=== PATIENT | female | born 1990 | race American Indian/Alaskan Native ===

== ENCOUNTER 2016-07-04 06:08 | Emergency (ER) | payer OTHER ==
[2016-07-04 06:47] LABS: RBC URINE < 1 /hpf (0-3); URINE BILIRUBIN NEGATIVE (NEGATIVE); URINE BLOOD NEGATIVE (NEGATIVE); URINE COLOR Straw (YELLOW); URINE GLUCOSE (UA) NORMAL (Normal); URINE KETONE NEGATIVE (NEGATIVE); URINE LEUKOCYTE ESTERASE NEG Leu/uL (Negative); URINE PROTEIN NEGATIVE (NEGATIVE); URINE UROBILINOGEN NORMAL mg/dL (0.2-1.0)
[2016-07-04 07:01] VITALS: O2SAT 100
--- NOTE | 2016-07-04 07:34 | C.PDOC ---
History Of Present Illness 26 y/o female pmhx asthma, mitral valve prolapse presents to the ED with multiple complaints. Pt states she has been belching and has pain in the rib cage when belching over the past year, worse today. Pt also reports intermittent palpitations (none currently), tension to left side of head and numbness to bilateral hands. Pt denies fever, chills, chest pain, SOB, nausea, vomiting, neck pain or any other complaints. Pt has been told she has panic attacks in the past. Time Seen by Provider: 07/04/16 07:14 Chief Complaint (Nursing): Palpitations History Per: Patient History/Exam Limitations: no limitations Onset/Duration Of Symptoms: Days Current Symptoms Are (Timing): Worse Severity: Moderate Recent travel outside of the [place]: No Past Medical History Reviewed: Historical Data, Nursing Documentation, Vital Signs Vital Signs: Last Vital Signs Temp 97.3 F L 07/04/16 09:56 Pulse 78 07/04/16 09:56 Resp 14 07/04/16 09:56 BP 108/72 07/04/16 09:56 Pulse Ox 100 07/04/16 09:56 - Medical History PMH: Anxiety, Asthma, Mitral Valve Prolapse Family History: States: Unknown Family Hx - Social History Hx Alcohol Use: No Hx Substance Use: No - Immunization History Hx Influenza Vaccination: No Hx Pneumococcal Vaccination: No Review Of Systems Except As Marked, All Systems Reviewed And Found Negative. Constitutional: Negative for: Fever Cardiovascular: Positive for: Palpitations (resolved). Negative for: Chest Pain Respiratory: Negative for: Shortness of Breath Gastrointestinal: Negative for: Nausea, Vomiting Musculoskeletal: Positive for: Other (pain to rib cage when belching). Negative for: Neck Pain Neurological: Positive for: Numbness (bilateral hands), Other (tension to left sided head). Negative for: Weakness Physical Exam - Physical Exam Appears: Non-toxic, No Acute Distress, Other (anxious) Skin: Warm, Dry, No Rash Head: Atraumatic, Normacephalic Neck: Normal ROM, Supple Chest: Symmetrical Cardiovascular: Rhythm Regular, No Murmur Respiratory: Normal Breath Sounds, No Rales, No Rhonchi, No Wheezing Gastrointestinal/Abdominal: Normal Exam, Soft, No Tenderness Extremity: Normal ROM Extremity: Bilateral: Atraumatic Neurological/Psych: Oriented x3, Normal Speech, Normal Motor, Normal Sensation ED Course And Treatment - Laboratory Results Result Diagrams: 07/04/16 08:12 07/04/16 08:12 O2 Sat by Pulse Oximetry: 100 (room air) Pulse Ox Interpretation: Normal Progress Note: Plan: EKG, UA Medical Decision Making Medical Decision Making: Patient very anxious. Hx of MVP. EKG wnl, labs wnl. Patient given Ativan 1 mg PO. Now sleepy, but willing to go home. States she has no pain. Will wait until she is more awake. Disposition Counseled Patient/Family Regarding: Studies Performed, Diagnosis - Disposition Disposition: HOME/ ROUTINE Disposition Time: 10:33 Condition: STABLE Additional Instructions: Follow up with your doctor. Return to the ED with any further concerns. Instructions: Palpitations (ED) Forms: General Discharge Instructions, Work Excuse - POA Present On Arrival: None - Clinical Impression Clinical Impression: Palpitations - Scribe Statement The provider has reviewed the documentation as recorded by the Rachel Maravilla Provider Attestation: All medical record entries made by the Jose Libpedro were at my direction and personally dictated by me. I have reviewed the chart and agree that the record accurately reflects my personal performance of the history, physical exam, medical decision making, and the department course for this patient. I have also personally directed, reviewed, and agree with the discharge instructions and disposition.
[2016-07-04 08:31] LABS: BASO % 0.3 % (0.0-2.0); EOS % 0.4 % (0.0-4.0); HEMATOCRIT 34.3 % (34.0-47.0); LYMPH % 32.9 % (20.0-40.0); MEAN CELL VOLUME 90.7 fL (81.0-99.0); MEAN CORPUSCULAR HEMOGLOBIN 30.5 pg (27.0-31.0); MEAN CORPUSCULAR HGB CONC 33.7 g/dL (33.0-37.0); MEAN PLATELET VOLUME 8.4 fL (7.2-11.7); MONO # 0.3 K/uL (0.0-0.8); MONO % 9.8 % (0.0-10.0); RED CELL DISTRIBUTION WIDTH 12.2 % (11.5-14.5); WHITE BLOOD COUNT 3.1 K/uL (4.8-10.8)
[2016-07-04 08:39] LABS: CHLORIDE 105 mmol/L (98-107); SODIUM 142 mmol/L (132-148)
[2016-07-04 08:40] LABS: POTASSIUM 3.7 mmol/L (3.6-5.2)
[2016-07-04 08:42] LABS: ALB/GLOB RATIO 1.4 (1.0-2.1); ALKALINE PHOSPHATASE 59 U/L (38-126); AST/SGOT 19 U/L (14-36); BILIRUBIN,TOTAL 0.9 mg/dL (0.2-1.3); BLOOD UREA NITROGEN 7 mg/dL (7-17); CARBON DIOXIDE 21 mmol/L (22-30); GFR AFRICAN-AMERICAN > 60; GLUCOSE,RANDOM 101 mg/dL (65-105); TOTAL PROTEIN 7.7 g/dL (6.3-8.3)
[2016-07-04 08:43] LABS: ALCOHOL SERUM < 10 mg/dl (0-10); CALCIUM 9.5 mg/dl (8.6-10.4)
[2016-07-04 08:47] LABS: ALT/SGPT < 6 U/L (9-52)
[2016-07-04 09:57] VITALS: BP 108/72; PULSE 78; RESP 14; TEMP 97.3
--- NOTE | 2016-07-11 13:50 | CARD ---
APPROVED REPORT EKG Measurement Heart [id number] [place] [id number] <Conclusion> Normal sinus rhythm with sinus arrhythmia Nonspecific T wave abnormality Abnormal ECG
== END 2016-07-04 10:52 | disposition home or self-care (01) ==
LOC: C.ER 06:08
DX: R00.2 Palpitations (principal)

== ENCOUNTER 2016-12-14 11:50 | Observation (INO) | payer OTHER ==
[2016-12-14] MEDS ORDERED: Sodium Chloride 0.9% 1,000 ML IV ONE (12:07)
[2016-12-14] MEDS ORDERED: Lactated Ringer's 1,000 ML IV ONE ×2 (12:20)
[2016-12-14] MEDS: cefOXitin IV 1 gm in Dextrose 1 GM/50 ML BAG IVPB ONE ×2 (12:20→14:20)
[2016-12-14 12:32] LABS: BASO % 0.5 % (0.0-2.0); CHLORIDE 103 mmol/L (98-107); EOS % 0.8 % (0.0-4.0); HEMATOCRIT 32.6 % (34.0-47.0); LYMPH # 1.4 K/uL (1.0-4.3); LYMPH % 47.5 % (20.0-40.0); MEAN CORPUSCULAR HEMOGLOBIN 30.8 pg (27.0-31.0); MEAN CORPUSCULAR HGB CONC 32.6 g/dL (33.0-37.0); MEAN PLATELET VOLUME 7.6 fL (7.2-11.7); MONO # 0.3 K/uL (0.0-0.8); MONO % 9.3 % (0.0-10.0); NRBC % 0.1 % (0.0-2.0); POTASSIUM 3.9 mmol/L (3.6-5.2); RED CELL DISTRIBUTION WIDTH 13.5 % (11.5-14.5); SODIUM 138 mmol/L (132-148)
[2016-12-14 12:34] LABS: BILIRUBIN,TOTAL 0.7 mg/dL (0.2-1.3); CARBON DIOXIDE 26 mmol/L (22-30); GFR AFRICAN-AMERICAN > 60
[2016-12-14 12:35] LABS: ALB/GLOB RATIO 1.1 (1.0-2.1); ALKALINE PHOSPHATASE 47 U/L (38-126); ALT/SGPT 14 U/L (9-52); AST/SGOT 18 U/L (14-36); BLOOD UREA NITROGEN 9 mg/dL (7-17); CALCIUM 9.4 mg/dl (8.6-10.4); GLUCOSE,RANDOM 76 mg/dL (65-105); TOTAL PROTEIN 8.3 g/dL (6.3-8.3)
[2016-12-14 12:36] LABS: RBC URINE 6 /hpf (0-3); URINE BACTERIA RARE (<OCC); URINE BILIRUBIN NEGATIVE (NEGATIVE); URINE COLOR Yellow (YELLOW); URINE GLUCOSE (UA) NORMAL (Normal); URINE KETONE NEGATIVE (NEGATIVE); URINE PROTEIN NEGATIVE (NEGATIVE); WBC URINE 8 /hpf (0-5)
[2016-12-14 12:37] LABS: INR 1.1; URINE BLOOD 1+ (NEGATIVE); URINE LEUKOCYTE ESTERASE 1+ Leu/uL (Negative)
[2016-12-14 12:40] LABS: MEAN CELL VOLUME 94.4 fL (81.0-99.0)
--- NOTE | 2016-12-14 12:53 | C.PDOC ---
History Of Present Illness 26 year old female presents to the ED for worsening abdominal pain and vaginal bleeding in setting of recent elective medical . Patient reports starting methotrexate on November 29 for medical . She began having vaginal bleeding shortly after which resolved. Patient began having abdominal pain and vaginal bleeding returned. She presented to her OBGYN who ordered an ultrasound which showed retained products and discharged the patient home. Patient reports that pain and bleeding have worsened today prompting her to come to the ED. Chief Complaint (Nursing): Medical Clearance History Per: Patient History/Exam Limitations: no limitations Onset/Duration Of Symptoms: Days Current Symptoms Are (Timing): Worse Past Medical History Reviewed: Historical Data, Nursing Documentation, Vital Signs Vital Signs: Last Vital Signs Temp 98.1 F 12/14/16 14:50 Pulse 60 12/14/16 16:00 Resp 14 12/14/16 16:00 BP 126/64 12/14/16 16:00 Pulse Ox 100 12/14/16 16:00 - Medical History PMH: Anxiety, Asthma, Bronchitis, Mitral Valve Prolapse Family History: States: Unknown Family Hx - Social History Hx Alcohol Use: No Hx Substance Use: No - Immunization History Hx Influenza Vaccination: No Hx Pneumococcal Vaccination: No Review Of Systems Gastrointestinal: Positive for: Abdominal Pain Genitourinary: Positive for: Vaginal Bleeding Physical Exam - Physical Exam Appears: Non-toxic, No Acute Distress Skin: Normal Color, Warm, Dry Head: Atraumatic, Normacephalic Eye(s): bilateral: Normal Inspection, PERRL, EOMI Pelvic: Other (Pelvic Exam Deferred ) Neurological/Psych: Oriented x3, Normal Speech ED Course And Treatment - Laboratory Results Result Diagrams: 12/14/16 12:17 12/14/16 12:17 O2 Sat by Pulse Oximetry: 100 Medical Decision Making Medical Decision Making: Labs ordered. Spoke with Dr. Rubin [employer] investigations manager who accepted the patient to same day surgery for D&C. Disposition - Disposition Disposition: HOSPITALIZED Disposition Time: 12:52 Condition: STABLE - Clinical Impression Clinical Impression: Incomplete - Scribe Statement The provider has reviewed the documentation as recorded by the Scribe Tanner Steel
--- NOTE | 2016-12-14 13:07 | CP.PCM.HP ---
History of Present Illness - History of Present Illness History of Present Illness: 26 yr lmp ?? s/p medical termination on nov 29 came with vaginal bleeding since nov 29.pt had a sonogram retained products.c/o cramping pain. obhx 3 x nvd pmh den med pnv all nkda psh den soch den pelic exa old blood cervix dilated, ut 8weks anteverted,no mass Present on Admission - Present on Admission Any Indicators Present on Admission: No History of DVT/PE: No History of Uncontrolled Diabetes: No Urinary Catheter: No Decubitus Ulcer Present: No Review of Systems - Reproductive: Female Reproductive:Female: Abnormal Vaginal Bleeding Past Patient History - Infectious Disease Hx of Infectious Diseases: None - Past Social History Smoking Status: Former Smoker - CARDIAC Hx Mitral Valve Prolapse: Yes - PULMONARY Hx Asthma: Yes Hx Bronchitis: Yes - PSYCHIATRIC Hx Anxiety: Yes Hx Substance Use: No - SURGICAL HISTORY Hx Surgeries: No - ANESTHESIA Hx Anesthesia: No Meds Allergies/Adverse Reactions: Allergies Allergy/AdvReac Type Severity Reaction Status Date / Time chocolate AdvReac Severe RASH Uncoded 12/14/16 11:57 soda AdvReac Severe RASH Uncoded 12/14/16 11:57 Physical Exam - Exam External exam: NORMAL EXTERNAL EXAM Speculum exam: Vaginal Bleeding Bimanual exam: NORMAL BIMANUAL EXAM (cervix dilated) Results - Vital Signs Recent Vital Signs: Last Vital Signs Temp 98.2 F 12/14/16 11:54 Pulse 57 L 12/14/16 12:49 Resp 16 12/14/16 12:49 BP 103/63 12/14/16 12:49 Pulse Ox 100 12/14/16 12:53 - Labs Result Diagrams: 12/14/16 12:17 12/14/16 12:17 Labs: Laboratory Results - last 24 hr 12/14/16 12/14/16 12/14/16 12:17 12:17 12:17 WBC 3.0 L RBC 3.45 L Hgb 10.6 L Hct 32.6 L MCV 94.4 D MCH 30.8 MCHC 32.6 L RDW 13.5 Plt Count 359 MPV 7.6 Neut % (Auto) 41.9 L Lymph % (Auto) 47.5 H [place] % (Auto) 9.3 Eos % (Auto) 0.8 Baso % (Auto) 0.5 Neut # 1.2 L Lymph # 1.4 [place] # 0.3 Eos # 0.0 Baso # 0.0 PT 12.5 H INR 1.1 APTT 31 Sodium Potassium Chloride Carbon Dioxide Anion Gap BUN Creatinine Est GFR ( Amer) Est GFR (Non-Af Amer) Random Glucose Calcium Total Bilirubin AST ALT Alkaline Phosphatase Total Protein Albumin Globulin Albumin/Globulin Ratio Urine Color Yellow Urine Clarity Hazy Urine pH 5.0 Ur Specific [place] 1.021 Urine Protein Negative Urine Glucose (UA) Normal Urine Ketones Negative Urine Blood 1+ H Urine Nitrate Negative Urine Bilirubin Negative Urine Urobilinogen 4.0 H Ur Leukocyte Esterase 1+ H Urine WBC (Auto) 8 H Urine RBC (Auto) 6 H Ur Squamous Epith Cells 21 H Urine Bacteria Rare Blood Type 12/14/16 12/14/16 12:17 12:17 WBC RBC Hgb Hct MCV MCH MCHC RDW Plt Count MPV Neut % (Auto) Lymph % (Auto) [place] % (Auto) Eos % (Auto) Baso % (Auto) Neut # Lymph # [place] # Eos # Baso # PT INR APTT Sodium 138 Potassium 3.9 Chloride 103 Carbon Dioxide 26 Anion Gap 14 BUN 9 Creatinine 0.6 L Est GFR ( Amer) > 60 Est GFR (Non-Af Amer) > 60 Random Glucose 76 Calcium 9.4 Total Bilirubin 0.7 AST 18 ALT 14 Alkaline Phosphatase 47 Total Protein 8.3 Albumin 4.3 Globulin 4.0 H Albumin/Globulin Ratio 1.1 Urine Color Urine Clarity Urine pH Ur Specific [place] Urine Protein Urine Glucose (UA) Urine Ketones Urine Blood Urine Nitrate Urine Bilirubin Urine Urobilinogen Ur Leukocyte Esterase Urine WBC (Auto) Urine RBC (Auto) Ur Squamous Epith Cells Urine Bacteria Blood Type A POSITIVE Assessment & Plan - Assessment and Plan (Free Text) Assessment: 26 yr with incomplete Plan: plan Admit to echocardiography radiology technologist npo/ivf labs Suction d&c informed consent Or aware pt understand and agrees - Date & Time Date: 12/14/16 Time: 13:00
[2016-12-14] MEDS ORDERED: HYDROmorphone 0.5 mg/0.5 ml ISec IVP PRN (13:59)
[2016-12-14] MEDS ORDERED: Midazolam 2 MG/2 ML VIAL ONE (14:15)
[2016-12-14] MEDS ORDERED: Propofol 10 mg/ml Inj (20 ML) ONE (14:15)
--- NOTE | 2016-12-14 14:42 | PCM.SURG1 ---
Surgeon's Initial Post Op Note - Surgeon's Notes Surgeon: dr cervantes Refurbish Technician: none Type of Anesthesia: IV Sedation Anesthesia Administered By: dr fleming Pre-Operative Diagnosis: 26 yr with incomplete Operative Findings: see the op reort Post-Operative Diagnosis: same Operation Performed: suction d &c Specimen/Specimens Removed: poc Estimated Blood Loss: EBL {In ML}: 20 Blood Products Given: N/A Drains Used: No Drains Post-Op Condition: Good Date of Surgery/Procedure: 12/14/16 Time of Surgery/Procedure: 15:00
[2016-12-14] MEDS ORDERED: Albuterol 0.042% Inhal Sol (1.25 mg/3 mL) UD INH ONE ×2 (15:53→16:00)
[2016-12-14 16:50] VITALS: BP 110/70; PULSE 57; RESP 18; TEMP 97.2; O2SAT 98
[2016-12-14] MEDS ORDERED: Influenza Vaccine 60 mcg/0.5 mL SYR (4YR UP) IM ONE (16:58)
--- NOTE | 2016-12-15 07:01 | OP ---
PROCEDURE DATE: 12/14/2016 PREOPERATIVE DIAGNOSIS: A 26-year-old 4, para 3 at 8 weeks, incomplete . POSTOPERATIVE DIAGNOSIS: A 26-year-old 4, para 3 at 8 weeks, incomplete . PROCEDURE: Suction dilation and curettage. SURGEON: Placido Rubin MD UX SPECIALIST: None. TYPE OF ANESTHESIA: General anesthesia, IV sedation. ANESTHESIA ADMINISTERED BY: Dr. Chan Borjas. COMPLICATIONS: None. DESCRIPTION OF PROCEDURE: After informed consent was obtained, the patient was brought to the operating room, placed on the table where IV sedation was given and the patient was examined. Examination of the uterus revealed it to be 8 weeks' size. No pelvic or adnexal masses. The cervix was dilated. Anterior lip of the cervix was grasped with a tenaculum, gentle dilatation of the cervix was done. A 6-Bengali flexible catheter was used for suction. Moderate amount of the tissue was found, then sharp curettage was done. The suction was done again and normal products were coming. The tenaculum was taken out of the anterior lip of the cervix. The patient tolerated the procedure well. All lap, sponge, and instrument counts were correct x2. The patient to go home on antibiotics. Follow up in the office in 2 weeks. Placido Rubin MD
--- NOTE | 2016-12-16 19:17 | CARD ---
APPROVED REPORT EKG Measurement Heart [id number] <Conclusion> Sinus rhythm with marked sinus arrhythmia Normal for age.
== END 2016-12-14 18:43 | disposition home or self-care (01) ==
LOC: C.ER 11:50 → C.SDS 13:29 → C.4M 16:48
PROVIDERS: ADMIT Obstetrics & Gynecology; ATTEND Obstetrics & Gynecology
DX: O03.4 Incomplete spontaneous abortion without complication (principal); Z87.891 Personal history of nicotine dependence
CPT/HCPCS: 59812; 80053; 81001; 85025; 85610; 85730; 86850; 86900; 88305; 99285; G0378; J0694; J2250; J2704; J3010; J7040; J7120